=== PATIENT | male | born 1985 | race American Indian/Alaskan Native ===

== ENCOUNTER 2021-10-31 20:19 | Emergency (ER) | payer SELFPAY ==
[2021-10-31 20:38] VITALS: BP 126/88
[2021-11-01] MEDS ORDERED: LIDOCAINE VISCOUS 2% 15 ML ORAL LIQD MM ONE (03:22)
--- NOTE | 2021-11-01 03:24 | Emergency Department Report ---
ED ENT HPI - General Chief complaint: Dental/Oral Stated complaint: TOOTH PAIN Time Seen by Provider: 11/01/21 03:11 Source: patient Mode of arrival: Ambulatory Limitations: No Limitations - History of Present Illness MD complaint: tooth pain -: Sudden, days(s) Location: tooth # 1 - Severe dental erosion 2 - Severe dental erosion 3 - Dental caries Severity: mild, moderate Quality: aching, dull Consistency: constant Improves with: none Worsens with: none Context- Dental: history of dental caries Associated Symptoms: gum swelling, toothache, pain with swallowing. denies: sore throat, tinnitus, discharge from ear, rhinorrhea - Related Data Previous Rx's Medication Instructions Recorded Last Taken Type Amoxicillin [Trimox CAP] 500 mg PO Q8H #30 capsule 07/30/13 Unknown Rx HYDROcodone/APAP 5-325 [[place] 1 each PO Q6HR PRN #10 tablet 07/30/13 Unknown Rx 5/325 mg] methylPREDNISolone [Medrol Dose 8 mg PO QAM #1 tab.ds.pk 07/30/13 Unknown Rx Otf] Albuterol Mdi (or & Nicu Only) 2 puff IH QID PRN #1 inhalation 11/01/21 Unknown Rx [ProAir HFA Inhaler] Amoxicillin/Potassium Clav 1 each PO BID #20 tablet 11/01/21 Unknown Rx [Augmentin 875-125 Tablet] Chlorhexidine Mouthwash [Peridex] 15 ml MM BID #1 bottle 11/01/21 Unknown Rx Ketorolac [Toradol] 10 mg PO Q6H PRN #15 tablet 11/01/21 Unknown Rx Lidocaine Viscous 2% 5 ml MM Q3H PRN #120 udc 11/01/21 Unknown Rx Allergies Allergy/AdvReac Type Severity Reaction Status Date / Time No Known Allergies Allergy Unverified 07/30/13 11:32 ED Dental HPI - General Chief complaint: Dental/Oral Stated complaint: TOOTH PAIN Time Seen by Provider: 11/01/21 03:11 Source: patient Mode of arrival: Ambulatory Limitations: No Limitations - Related Data Previous Rx's Medication Instructions Recorded Last Taken Type Amoxicillin [Trimox CAP] 500 mg PO Q8H #30 capsule 07/30/13 Unknown Rx HYDROcodone/APAP 5-325 [[place] 1 each PO Q6HR PRN #10 tablet 07/30/13 Unknown Rx 5/325 mg] methylPREDNISolone [Medrol Dose 8 mg PO QAM #1 tab.ds.pk 07/30/13 Unknown Rx Otf] Albuterol Mdi (or & Nicu Only) 2 puff IH QID PRN #1 inhalation 11/01/21 Unknown Rx [ProAir HFA Inhaler] Amoxicillin/Potassium Clav 1 each PO BID #20 tablet 11/01/21 Unknown Rx [Augmentin 875-125 Tablet] Chlorhexidine Mouthwash [Peridex] 15 ml MM BID #1 bottle 11/01/21 Unknown Rx Ketorolac [Toradol] 10 mg PO Q6H PRN #15 tablet 11/01/21 Unknown Rx Lidocaine Viscous 2% 5 ml MM Q3H PRN #120 udc 11/01/21 Unknown Rx Allergies Allergy/AdvReac Type Severity Reaction Status Date / Time No Known Allergies Allergy Unverified 07/30/13 11:32 ED Review of Systems ROS: Stated complaint: TOOTH PAIN Other details as noted in HPI Comment: All other systems reviewed and negative ED Past Medical Hx - Past Medical History Previous Medical History?: No - Surgical History Past Surgical History?: No - Social History Smoking Status: Never Smoker Substance Use Type: None - Medications Home Medications: Home Medications Medication Instructions Recorded Confirmed Last Taken Type Amoxicillin [Trimox CAP] 500 mg PO Q8H #30 capsule 07/30/13 Unknown Rx HYDROcodone/APAP 5-325 [[place] 1 each PO Q6HR PRN #10 tablet 07/30/13 Unknown Rx 5/325 mg] methylPREDNISolone [Medrol Dose 8 mg PO QAM #1 tab.ds.pk 07/30/13 Unknown Rx Otf] Albuterol Mdi (or & Nicu Only) 2 puff IH QID PRN #1 inhalation 11/01/21 Unknown Rx [ProAir HFA Inhaler] Amoxicillin/Potassium Clav 1 each PO BID #20 tablet 11/01/21 Unknown Rx [Augmentin 875-125 Tablet] Chlorhexidine Mouthwash [Peridex] 15 ml MM BID #1 bottle 11/01/21 Unknown Rx Ketorolac [Toradol] 10 mg PO Q6H PRN #15 tablet 11/01/21 Unknown Rx Lidocaine Viscous 2% 5 ml MM Q3H PRN #120 udc 11/01/21 Unknown Rx ED Physical Exam - General Limitations: No Limitations General appearance: alert, in no apparent distress - Head Head exam: Present: atraumatic, normocephalic - Eye Eye exam: Present: normal appearance - ENT ENT exam: Present: mucous membranes moist, other (Severe dental erosion noted throughout the mouth with several areas of gingivitis and erythematous swollen gingiva. Airway still patent tongue uvula midline no drooling voice is not muffled. Several areas of dental fractures are noted as well) - Neck Neck exam: Present: normal inspection - Respiratory Respiratory exam: Present: normal lung sounds bilaterally. Absent: respiratory distress - Cardiovascular Cardiovascular Exam: Present: regular rate, normal rhythm. Absent: systolic murmur, diastolic murmur, rubs, gallop - GI/Abdominal GI/Abdominal exam: Present: soft, normal bowel sounds - Rectal Rectal exam: Present: deferred - Extremities Exam Extremities exam: Present: normal inspection - Back Exam Back exam: Present: normal inspection - Neurological Exam Neurological exam: Present: alert, oriented X3 - Psychiatric Psychiatric exam: Present: normal affect, normal mood - Skin Skin exam: Present: warm, dry, intact, normal color. Absent: rash ED Course Vital Signs 10/31/21 20:37 Temperature 98.1 F Pulse Rate 79 Respiratory 18 Rate Blood Pressure 126/88 O2 Sat by Pulse 96 Oximetry Critical care attestation.: If time is entered above; I have spent that time in minutes in the direct care of this critically ill patient, excluding procedure time. ED Disposition Clinical Impression: Toothache, Infected dental caries Disposition: 01 HOME / SELF CARE / HOMELESS Is pt being admited?: No Does the pt Need Aspirin: No Condition: Stable Instructions: Preventive Dental Care, Adult, Acute Pain, Adult, Dental Extraction, Care After, [id number] Prescriptions: Lidocaine Viscous 2% 5 ml MM Q3H PRN #120 udc PRN Reason: Pain, Moderate (4-6) Chlorhexidine Mouthwash [Peridex] 15 ml MM BID #1 bottle Albuterol Mdi (or & Nicu Only) [ProAir HFA Inhaler] 2 puff IH QID PRN #1 inhalation PRN Reason: Shortness Of Breath Ketorolac [Toradol] 10 mg PO Q6H PRN #15 tablet PRN Reason: Pain Referrals: [facility] [Outside] - 3-5 Days
[2021-11-01] MEDS ORDERED: IBUPROFEN 800 MG TAB ONE (04:54)
[2021-11-01] MEDS ORDERED: IBUPROFEN 800 MG TAB PO ONE (04:57)
== END 2021-11-01 05:08 | disposition home or self-care (01) ==
LOC: ED 20:19
DX: K02.9 Dental caries, unspecified (principal); Z79.899 Other long term (current) drug therapy
CPT/HCPCS: 99282